=== PATIENT | male | born 1985 | race Asian ===

== ENCOUNTER 2020-10-19 10:42 | Emergency (ER) | payer BC | END 2020-10-19 11:10 | disposition home or self-care (01) | LOC: JVIRT 10:42 | DX: Z11.59 Encounter for screening for other viral diseases (principal) | CPT/HCPCS: C9803; Q3014-GT; U0003 ==

== ENCOUNTER 2021-09-04 19:33 | Emergency (ER) | payer BC ==
[2021-09-04] MEDS ORDERED: CASIRIVIMAB/IMDEVIMAB 10 ML in SODIUM CHLORIDE 100 ML IVPB ONE (19:37)
[2021-09-04] MEDS ORDERED: SODIUM CHLORIDE 0.9% 500 ML INFUS.BAG IV ONE (19:45)
[2021-09-04] MEDS ORDERED: KETOROLAC TROMETHAMINE 30 MG/1 ML VIAL IVPUSH ONE (19:46)
[2021-09-04 20:15] VITALS: PULSE 84; TEMP 97.9; BMI 22.8
[2021-09-04] MEDS ORDERED: KETOROLAC TROMETHAMINE 30 MG/1 ML VIAL ONE (20:36)
[2021-09-04 22:21] VITALS: BP 110/72
== END 2021-09-04 22:23 | disposition home or self-care (01) ==
LOC: JER 19:33
PROC: 3E03329 Introduction of Other Anti-infective into Peripheral Vein, Percutaneous Approach (ICD-10-PCS; principal; 2021-09-04)
PROC: 3E0333Z Introduction of Anti-inflammatory into Peripheral Vein, Percutaneous Approach (ICD-10-PCS; 2021-09-04)
DX: Z11.52 Encounter for screening for COVID-19 (principal)
CPT/HCPCS: 71046-TC-FY; 99284-25; Q0240

== ENCOUNTER 2023-07-04 21:23 | Emergency (ER) | payer BC ==
[2023-07-04] MEDS ORDERED: ONDANSETRON 4 MG/2 ML VIAL IVPUSH ONE (21:27)
[2023-07-04] MEDS ORDERED: SODIUM CHLORIDE 1,000 ML IV STA ×2 (21:27→22:24)
[2023-07-04] MEDS ORDERED: ONDANSETRON 4 MG/2 ML VIAL ONE (21:32)
[2023-07-04] MEDS ORDERED: ACETAMINOPHEN INJECTION 100 ML IVPB ONE (21:34)
[2023-07-04] MEDS ORDERED: ACETAMINOPHEN 1000 MG/100 ML BAG IVPB ONE (21:34)
[2023-07-04] MEDS ORDERED: FAMOTIDINE 20 MG/50 ML IVPB 20 MG/50 ML MG IVPB ONE ×2 (21:34)
[2023-07-04 21:54] VITALS: BP 160/89; PULSE 101; RESP 20; TEMP 99.8; BMI 22.8
[2023-07-04 22:21] LABS: HEMATOCRIT 44.7 % (35.4-49); HEMOGLOBIN 15.1 G/dL (11.7-16.9); MCH 29.8 pg (25.7-33.7); MCHC 33.8 g/dl (32.0-35.9); MEAN CELL VOLUME 88.2 fl (80-96); MEAN PLT VOLUME 6.9 fl (7.5-11.1); PLATELET COUNT 168.2 10^3/uL (134-434); RBC 5.07 10^6/uL (4.00-5.60); RDW 14.1 % (11.9-15.9); WHITE BLOOD COUNT 12.1 10^3/uL (4.0-10.8)
[2023-07-04 22:38] LABS: ALBUMIN 4.3 g/dl (3.4-5.0); BLOOD UREA NITROGEN 16.9 mg/dl (7-18); CREATININE 1.2 mg/dl (0.6-1.3); POTASSIUM 4.3 mmol/L (3.5-5.1); SGOT/AST 18.7 U/L (15-37); SGPT/ALT 13.3 U/L (7-52); TOT PROT 6.8 g/dl (6.4-8.2)
[2023-07-04 22:53] LABS: PLATELET ESTIMATE ADEQUATE
[2023-07-05 00:10] LABS: BILIRUBIN,TOTAL 0.7 mg/dL (0.2-1)
== END 2023-07-04 23:23 | disposition home or self-care (01) ==
LOC: FER 21:23
PROC: 3E033GC Introduction of Other Therapeutic Substance into Peripheral Vein, Percutaneous Approach (ICD-10-PCS; principal; 2023-07-04)
PROC: 3E023NZ Introduction of Analgesics, Hypnotics, Sedatives into Muscle, Percutaneous Approach (ICD-10-PCS; 2023-07-04)
PROC: 3E033GC Introduction of Other Therapeutic Substance into Peripheral Vein, Percutaneous Approach (ICD-10-PCS; 2023-07-04)
PROC: 3E0337Z Introduction of Electrolytic and Water Balance Substance into Peripheral Vein, Percutaneous Approach (ICD-10-PCS; 2023-07-04)
PROC: 3E0337Z Introduction of Electrolytic and Water Balance Substance into Peripheral Vein, Percutaneous Approach (ICD-10-PCS; 2023-07-04)
DX: R11.2 Nausea with vomiting, unspecified (principal); R19.7 Diarrhea, unspecified; R10.13 Epigastric pain
CPT/HCPCS: 36415; 80053; 83690; 85025; 99284-25

== ENCOUNTER 2024-04-27 09:09 | Emergency (ER) | payer BC, OTHER ==
[2024-04-27 09:26] VITALS: BP 110/73; PULSE 107; RESP 20; BMI 17.0
[2024-04-27] MEDS ORDERED: ACETAMINOPHEN INJECTION 100 ML IVPB ONE (09:30)
[2024-04-27] MEDS: SODIUM CHLORIDE 1,000 ML IV STA ×2 (09:35→10:25)
[2024-04-27] MEDS: ACETAMINOPHEN 1000 MG/100 ML BAG IVPB ONE (09:40)
[2024-04-27 09:59] LABS: HEMATOCRIT 44.9 % (35.4-49); HEMOGLOBIN 14.7 G/dL (11.7-16.9); MCH 28.8 pg (25.7-33.7); MCHC 32.7 g/dl (32.0-35.9); MEAN CELL VOLUME 88.2 fl (80-96); PLATELET COUNT 166.2 10^3/uL (134-434); RBC 5.09 10^6/uL (4.00-5.60); RDW 13.5 % (11.9-15.9); WHITE BLOOD COUNT 7.5 10^3/uL (4.0-10.8)
[2024-04-27 10:03] LABS: INR 1.25 (0.83-1.09); PROTHROMBIN TIME (PATIENT) 14.2 SEC (9.7-13.0)
[2024-04-27 10:05] LABS: MAGNESIUM 1.9 mg/dL (1.8-2.4)
[2024-04-27 10:07] LABS: ALBUMIN 4.5 g/dl (3.4-5.0); BILIRUBIN,TOTAL 0.5 mg/dl (0.2-1); CALCIUM 9.2 mg/dl (8.5-10.1); CREATININE 1.6 mg/dl (0.6-1.3); TOT PROT 7.1 g/dl (6.4-8.2)
[2024-04-27 10:42] LABS: PLATELET ESTIMATE ADEQUATE
[2024-04-27 11:07] VITALS: TEMP 99.3
== END 2024-04-27 11:08 | disposition home or self-care (01) ==
LOC: FER 09:09
PROC: 3E033NZ Introduction of Analgesics, Hypnotics, Sedatives into Peripheral Vein, Percutaneous Approach (ICD-10-PCS; principal; 2024-04-27)
PROC: 3E0337Z Introduction of Electrolytic and Water Balance Substance into Peripheral Vein, Percutaneous Approach (ICD-10-PCS; 2024-04-27)
PROC: 3E0337Z Introduction of Electrolytic and Water Balance Substance into Peripheral Vein, Percutaneous Approach (ICD-10-PCS; 2024-04-27)
DX: N17.9 Acute kidney failure, unspecified (principal); M79.10 Myalgia, unspecified site; R68.83 Chills (without fever); R35.0 Frequency of micturition; R10.13 Epigastric pain; R11.0 Nausea; R61 Generalized hyperhidrosis; R53.81 Other malaise; Z20.822 Contact with and (suspected) exposure to COVID-19
CPT/HCPCS: 0241U-QW; 36415; 80053; 81003; 81015; 82550; 83690; 83735; 85027; 85610; 87086; 99284-25; J0131

== ENCOUNTER 2024-06-12 09:29 | Emergency (ER) | payer BC, OTHER ==
[2024-06-12] MEDS ORDERED: ONDANSETRON 4 MG/2 ML VIAL ONE (09:40)
[2024-06-12] MEDS: ACETAMINOPHEN 1000 MG/100 ML BAG IVPB ONE (10:20)
[2024-06-12] MEDS: SODIUM CHLORIDE 1,000 ML IV STA (10:20)
[2024-06-12] MEDS: ONDANSETRON 4 MG/2 ML VIAL IVPUSH ONE (10:21)
[2024-06-12 10:39] VITALS: BP 136/86; PULSE 77; RESP 20; TEMP 97.5; BMI 22.8
[2024-06-12 10:43] LABS: HEMATOCRIT 46.4 % (35.4-49); MCH 28.5 pg (25.7-33.7); MCHC 32.4 g/dl (32.0-35.9); MEAN PLT VOLUME 7.9 fl (7.5-11.1); PLATELET COUNT 227.8 10^3/uL (134-434); RBC 5.27 10^6/uL (4.00-5.60); RDW 14.2 % (11.9-15.9); WHITE BLOOD COUNT 5.8 10^3/uL (4.0-10.8)
[2024-06-12 11:01] LABS: ALK PHOS 58 U/L (45-117); ANION GAP 10 mmol/L (4-13); CHLORIDE 102 mmol/L (98-107); CO2 28 mmol/L (21-32); CREATININE 1.4 mg/dl (0.6-1.3); GLUCOSE,RANDOM 104 mg/dl (74-106); SGOT/AST 19 U/L (15-37); SGPT/ALT 15 U/L (7-52); SODIUM 140 mmol/L (136-145); TOT PROT 7.6 g/dl (6.4-8.2)
[2024-06-12 12:24] LABS: EPITHELIAL CELLS 0-5 /hpf; URINE MUCUS FEW
== END 2024-06-12 12:01 | disposition home or self-care (01) ==
LOC: FER 09:29
PROC: 3E033NZ Introduction of Analgesics, Hypnotics, Sedatives into Peripheral Vein, Percutaneous Approach (ICD-10-PCS; principal; 2024-06-12)
PROC: 3E033NZ Introduction of Analgesics, Hypnotics, Sedatives into Peripheral Vein, Percutaneous Approach (ICD-10-PCS; 2024-06-12)
PROC: 3E033GC Introduction of Other Therapeutic Substance into Peripheral Vein, Percutaneous Approach (ICD-10-PCS; 2024-06-12)
PROC: 3E0337Z Introduction of Electrolytic and Water Balance Substance into Peripheral Vein, Percutaneous Approach (ICD-10-PCS; 2024-06-12)
DX: N23 Unspecified renal colic (principal); R10.9 Unspecified abdominal pain; R11.2 Nausea with vomiting, unspecified
CPT/HCPCS: 36415; 80053; 81003; 81015; 85027; 87086; 99284-25; J0131

== ENCOUNTER 2024-07-18 04:40 | Day surgery (SDC) | payer BC ==
[2024-07-13 15:54] VITALS: BMI 22.8
[2024-07-18] MEDS ORDERED: MIDAZOLAM HCL 2 MG/2 ML SINGLE DOSE VIAL ONE (07:56)
[2024-07-18] MEDS ORDERED: LIDOCAINE HCL/PF 2% SDV 5ML VIAL ONE (07:56)
[2024-07-18] MEDS ORDERED: PROPOFOL 20 ML ONE ×3 (07:56→09:05)
[2024-07-18] MEDS: ceFAZolin SODIUM 1 GM VIAL IVPB ONE (08:46)
[2024-07-18] MEDS ORDERED: ONDANSETRON 4 MG/2 ML VIAL ONE (08:49)
[2024-07-18] MEDS ORDERED: DEXAMETHASONE SOD PHOSPHATE 4 MG/1 ML VIAL ONE (08:49)
[2024-07-18] MEDS ORDERED: ceFAZolin SODIUM 1 GM VIAL ONE (08:49)
[2024-07-18] MEDS ORDERED: KETOROLAC TROMETHAMINE 30 MG/1 ML VIAL ONE (08:49)
[2024-07-18] MEDS: LIDOCAINE HCL 2% JELLY 10 ML CARTRIDGE TP ONE (09:18)
[2024-07-18 09:57] VITALS: RESP 20; TEMP 97.3
[2024-07-18 11:15] VITALS: BP 114/72; PULSE 78
== END 2024-07-18 11:30 | disposition home or self-care (01) ==
LOC: JASU-SURG 04:40
PROVIDERS: ATTEND Urology
PROC: 0TCB8ZZ Extirpation of Matter from Bladder, Via Natural or Artificial Opening Endoscopic (ICD-10-PCS; principal; 2024-07-18 08:15)
DX: N20.0 Calculus of kidney (principal); R33.9 Retention of urine, unspecified

== ENCOUNTER 2024-08-21 12:36 | Emergency (ER) | payer BC ==
[2024-08-21] MEDS ORDERED: morphine SULFATE 4 MG/ML VIAL ONE (12:45)
[2024-08-21] MEDS: ONDANSETRON 4 MG/2 ML VIAL IVPUSH ONE (12:45)
[2024-08-21] MEDS: morphine CARPU-JECT 4 MG/1 ML DISP.SYRIN IVPUSH ONE (12:50)
[2024-08-21 13:03] VITALS: BP 126/86; PULSE 71; RESP 16; TEMP 98.2; BMI 22.8
[2024-08-21] MEDS: SODIUM CHLORIDE 0.9% 500 ML INFUS.BAG IV ONE (13:11)
[2024-08-21] MEDS: KETOROLAC TROMETHAMINE 30 MG/1 ML VIAL IVPUSH ONE (13:13)
[2024-08-21 13:35] LABS: INR 1.13 (0.83-1.09); PROTHROMBIN TIME (PATIENT) 12.8 SEC (9.7-13.0)
[2024-08-21 13:38] LABS: ACTIVATED PTT 28.6 SECONDS (25.2-36.5)
[2024-08-21 13:41] LABS: HEMATOCRIT 40.1 % (35.4-49); HEMOGLOBIN 13.4 G/dL (11.7-16.9); MCHC 33.5 g/dl (32.0-35.9); MEAN CELL VOLUME 89.5 fl (80-96); PLATELET COUNT 184.7 10^3/uL (134-434); RBC 4.48 10^6/uL (4.00-5.60); RDW 13.6 % (11.9-15.9); WHITE BLOOD COUNT 7.4 10^3/uL (4.0-10.8)
[2024-08-21 13:45] LABS: ALBUMIN 4.5 g/dl (3.4-5.0); ALK PHOS 60 U/L (45-117); ANION GAP 9 mmol/L (4-13); BILIRUBIN,TOTAL 0.6 mg/dl (0.2-1); CALCIUM 8.9 mg/dl (8.5-10.1); CHLORIDE 105 mmol/L (98-107); CO2 25 mmol/L (21-32); CREATININE 1.7 mg/dl (0.6-1.3); GLUCOSE,RANDOM 98 mg/dl (74-106); POTASSIUM 3.8 mmol/L (3.5-5.1); SGOT/AST 17 U/L (15-37); SGPT/ALT 15 U/L (7-52); SODIUM 139 mmol/L (136-145); TOT PROT 6.8 g/dl (6.4-8.2)
[2024-08-21] MEDS ORDERED: ACETAMINOPHEN INJECTION 100 ML ONE (14:11)
[2024-08-21] MEDS: ACETAMINOPHEN 1000 MG/100 ML BAG IVPB ONE (14:25)
[2024-08-21 15:59] LABS: PLATELET ESTIMATE ADEQUATE
== END 2024-08-21 14:52 | disposition home or self-care (01) ==
LOC: FER 12:36
PROC: 3E033NZ Introduction of Analgesics, Hypnotics, Sedatives into Peripheral Vein, Percutaneous Approach (ICD-10-PCS; principal; 2024-08-21)
PROC: 3E0333Z Introduction of Anti-inflammatory into Peripheral Vein, Percutaneous Approach (ICD-10-PCS; 2024-08-21)
PROC: 3E033NZ Introduction of Analgesics, Hypnotics, Sedatives into Peripheral Vein, Percutaneous Approach (ICD-10-PCS; 2024-08-21)
PROC: 3E033GC Introduction of Other Therapeutic Substance into Peripheral Vein, Percutaneous Approach (ICD-10-PCS; 2024-08-21)
DX: N13.2 Hydronephrosis with renal and ureteral calculous obstruction (principal); R11.0 Nausea; R10.32 Left lower quadrant pain; Z20.822 Contact with and (suspected) exposure to COVID-19
CPT/HCPCS: 0241U-QW; 36415; 74176-TC; 80053; 85027; 85610; 85730; 86850; 86900; 86901; 99284-25; J0131

== ENCOUNTER 2024-08-22 13:49 | Day surgery (SDC) | payer BC ==
[2024-08-22 14:08] VITALS: BMI 22.8
[2024-08-22] MEDS: SODIUM CHLORIDE 0.9% 1000 ML INFUS.BAG IV ONE (14:31)
[2024-08-22 14:53] LABS: INR 1.05 (0.83-1.09); PROTHROMBIN TIME (PATIENT) 12.1 SEC (9.7-13.0)
[2024-08-22 14:55] LABS: PH,URINE 5.5 (5.0-8.0); URINE APPEARANCE CLEAR; URINE BILIRUBIN NEGATIVE (NEGATIVE); URINE COLOR YELLOW; URINE GLUCOSE (UA) NEGATIVE (NEGATIVE); URINE KETONE 1+ (NEGATIVE); URINE LEUK ESTERASE NEGATIVE (NEGATIVE); URINE NITRITE NEGATIVE (NEGATIVE); URINE PROTEIN NEGATIVE (NEGATIVE); URINE UROBILINOGEN 0.2 mg/dL (0.2-1.0)
[2024-08-22 14:58] LABS: HEMATOCRIT 37.7 % (35.4-49); HEMOGLOBIN 12.6 GM/dL (11.7-16.9); MCH 29.2 pg (25.7-33.7); MCHC 33.5 g/dl (32.0-35.9); MEAN CELL VOLUME 87.3 fl (80-96); MEAN PLT VOLUME 7.5 fl (7.5-11.1); PLATELET COUNT 204 10^3/uL (134-434); RBC 4.32 M/mm3 (4.00-5.60); RDW 12.4 % (11.9-15.9); WHITE BLOOD COUNT 8.3 K/mm3 (4.0-10.0)
[2024-08-22] MEDS ORDERED: ACETAMINOPHEN 1000 MG/100 ML BAG IVPB PRN (15:17)
[2024-08-22 15:19] LABS: POTASSIUM 3.9 mmol/L (3.5-5.1)
[2024-08-22 15:21] LABS: BLOOD UREA NITROGEN 13.5 mg/dL (7-18)
[2024-08-22 15:25] LABS: CREATININE 2.1 mg/dL (0.55-1.3)
[2024-08-22 15:26] LABS: BILIRUBIN,TOTAL 0.7 mg/dL (0.2-1); TOT PROT 6.7 g/dl (6.4-8.2)
[2024-08-22] MEDS ORDERED: LACTATED RINGERS SOLUTION 1,000 ML/1,000 ML INFUS.BAG IV SCH ×2 (15:30)
[2024-08-22] MEDS ORDERED: MIDAZOLAM HCL 2 MG/2 ML SINGLE DOSE VIAL ONE (17:24)
[2024-08-22] MEDS ORDERED: DEXMEDETOMIDINE HCL 200 MCG/2 ML IVPB ONE (17:25)
[2024-08-22] MEDS ORDERED: LIDOCAINE HCL 2% JELLY 11 ML TP ONE (17:53)
[2024-08-22] MEDS: ceFAZolin SODIUM 1 GM VIAL IVPB ONE (17:56)
[2024-08-22] MEDS: GENTAMICIN SO4 80 MG/2 ML VIAL IVPB ONE (18:00)
[2024-08-22] MEDS ORDERED: KETOROLAC TROMETHAMINE 30 MG/1 ML VIAL ONE (18:02)
[2024-08-22] MEDS ORDERED: GENTAMICIN SO4 80 MG/2 ML VIAL ONE (18:02)
[2024-08-22] MEDS ORDERED: ONDANSETRON 4 MG/2 ML VIAL ONE ×2 (18:02→19:18)
[2024-08-22] MEDS ORDERED: ceFAZolin SODIUM 1 GM VIAL ONE (18:02)
[2024-08-22] MEDS ORDERED: DEXAMETHASONE SOD PHOSPHATE 4 MG/1 ML VIAL ONE (18:02)
[2024-08-22] MEDS: LIDOCAINE HCL 2% JELLY 10 ML CARTRIDGE TP ONE (18:10)
[2024-08-22] MEDS: IOHEXOL 300 MG/ML INFUS..BTL IV ONE (18:26)
[2024-08-22] MEDS ORDERED: LACTATED RINGERS SOLUTION 1,000 ML IV SCH (18:45)
[2024-08-22] MEDS ORDERED: ACETAMINOPHEN INJECTION 100 ML ONE (18:57)
[2024-08-22] MEDS: ONDANSETRON 4 MG/2 ML VIAL IVPUSH PRN (19:12)
[2024-08-22] MEDS: ACETAMINOPHEN 1000 MG/100 ML BAG IVPB ONE (19:13)
[2024-08-22 19:38] VITALS: RESP 18
[2024-08-22 20:12] VITALS: BP 123/84; PULSE 71; TEMP 98
[2024-08-31 10:08] LABS: CA OXALATE MONOHYDR. 20 % (.); SIZE 2x2 mm (.)
== END 2024-08-22 20:15 | disposition home or self-care (01) ==
LOC: JER 13:49 → UNDOADMOB 15:03 → JERBED 15:03 → JASUSAT 15:16
PROVIDERS: ATTEND Internal Medicine
PROC: 0TC78ZZ Extirpation of Matter from Left Ureter, Via Natural or Artificial Opening Endoscopic (ICD-10-PCS; principal; 2024-08-22 16:00)
PROC: 0T778DZ Dilation of Left Ureter with Intraluminal Device, Via Natural or Artificial Opening Endoscopic (ICD-10-PCS; 2024-08-22 16:00)
DX: N20.1 Calculus of ureter (principal); E78.5 Hyperlipidemia, unspecified
CPT/HCPCS: 36415; 76000-TC-FY; 80053; 81003; 82360; 85027; 85610; 87086; 88300-TC; 94760; 99285-25; C1758; C2617; J0131